=== PATIENT | female | born 2000 | race Hispanic/Latino ===

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

== ENCOUNTER → 2021-08-17 17:33 | Outpatient (CLI) | payer OTHER, MEDICAID, SELFPAY ==
[2021-08-17 18:22] LABS: COVID19 -Nasal RAPID Negative (Negative)
== END ==
PROVIDERS: Family Provider Family Medicine; PCP Family Medicine; Referring Provider Physician Assistant; Visit Provider Physician Assistant
DX: Z20.822 Contact with and (suspected) exposure to COVID-19 (principal)
CPT/HCPCS: 87635

== ENCOUNTER 2023-09-05 19:22 | Emergency (ER) | payer OTHER, MEDICAID, SELFPAY ==
[2023-09-05 19:30] VITALS: BP 143/78; PULSE 107; RESP 20; TEMP 36.6; O2SAT 100; BMI 24.5
--- NOTE | 2023-09-05 19:38 | ED.SKABFB ---
HPI - Skin/Abscess/Foreign Bdy General Chief complaint: Skin/Abscess/Foreign Body Stated complaint: right side boil in armpit Time Seen by Provider: 09/05/23 19:28 Source: patient Mode of arrival: Ambulatory Limitations: no limitations History of Present Illness HPI narrative: 22-year-old female. Is otherwise healthy. Has had 2 days of redness and swelling and a ?boil? to her right armpit. She has never had an abscess in the past that has required drainage. She states that she cut the area open last night with a knife that she had at home. It did drain a small amount of purulent fluid. She denies any fevers. Related Data Home Medications Medication Instructions Recorded Confirmed aripiprazole 10 mg tablet (Abilify) 10 mg PO DAILY 08/17/21 11/14/21 propranolol 10 mg tablet 5 mg PO ONCE 08/17/21 11/14/21 Previous Rx's Medication Instructions Recorded rizatriptan 5 mg tablet See Rx Instructions PO .COMPLEX 08/28/21 #30 tabs verapamil 120 mg 24 hr 120 mg PO DAILY #60 caps 08/28/21 capsule,extended release doxycycline hyclate 100 mg tablet 100 mg PO BID 7 days #14 tabs 09/05/23 Allergies Allergy/AdvReac Type Severity Reaction Status Date / Time No Known Allergies Allergy Uncoded 11/14/21 11:57 Review of Systems Constitutional Constitutional: Reports system reviewed and no additional complaints, except as documented Integumentary/Breasts Skin/Breast: Reports system reviewed and no additional complaints, except as documented Neurologic Neurologic: Reports system reviewed and no additional complaints, except as documented Patient History Medical History Screening for HPV (human papillomavirus) Cervical cancer screening Impingement syndrome, shoulder, left Hepatitis C Anxiety Acute hepatitis C virus infection without hepatic coma (10/02/16) Vaginal delivery Social History Smoking Status: Current every day smoker Smoking Status: Current every day smoker tobacco type: cigarettes and vaping alcohol intake frequency: holidays/special occasions only Substance Use Type: marijuana Exam Initial Vital Signs Initial Vital Signs: Vital Signs Temperature 97.9 F 09/05/23 19:30 Pulse Rate 107 H 12/28/23 19:30 Respiratory Rate 20 09/05/23 19:30 Blood Pressure 143/78 H 09/05/23 19:30 Pulse Oximetry 100 09/05/23 19:30 Oxygen Delivery Method Room Air 09/05/23 19:30 Skin Other: 7 cm area of redness consistent with cellulitis on her armpit and right upper inner arm. There is a smaller area of induration located more in the armpit there is a 1 cm area consistent with where the patient cut the wound earlier today. There was no active drainage. Extrem Other: Swelling to the right upper arm around the area of the infection. Procedures Abscess I/D I&D #1: Site: upper extremity Side (if applicable): right Local Anesthetic: lidocaine 1% and with epi Amount of anesthesia used (mL): 4 Technique: incised with #11 blade Irrigation: No Packing used?: none Course Orders Ordered: Discontinued Medications Doxycycline Hyclate (Doxycycline Hyclate 100 Mg Tablet) 100 mg PO NOW ONE Stop: 09/05/23 19:39 Last Admin: 09/05/23 19:47 Dose: 100 mg Documented By: CASSANDRA Vital Signs Vital signs: Vital Signs - 8 hr 09/05/23 19:30 09/05/23 20:00 Temperature 97.9 F 98.5 F Pulse Rate 107 H 98 H Respiratory Rate 20 16 Blood Pressure 143/78 H 118/74 Pulse Oximetry 100 98 Oxygen Delivery Method Room Air Room Air MDM - Skin/Abscess/Foreign Bdy MDM Narrative Medical decision making narrative: Bedside ultrasound showed a small area of what appeared to be an abscess. I suspect that quite a bit of the abscess was drained when she cut the area open at home on her own. They recommended to the patient that we do an I and D here in the ER to make sure that we get the entire abscess that it will drain which is most likely going to be the best chance of this healing. Patient expressed understanding of this and an I&D was performed as described above. Because of the large area of cellulitis around the area will start her on antibiotics. First dose was given here in the ER and a prescription was sent to the pharmacy of her choice. She was given return precautions. She expressed understanding and agreement. Discharge Plan Departure Patient Disposition: Home Clinical Impression: Abscess, Cellulitis Instructions: DI for Cellulitis -- Adult, DI for Skin Abscess Activity Restrictions/Additional Instructions: I would expect some continued drainage from the area. You just need to change the bandage as needed. Do not shave your arm pit or use deodorant until the wound is healed. You can shower like normal. Return to the emergency department for new symptoms. Prescriptions: New doxycycline hyclate 100 mg tablet 100 mg PO BID 7 Days Qty: 14 0RF No Action aripiprazole [Abilify] 10 mg tablet 10 mg PO DAILY propranolol 10 mg tablet 5 mg PO ONCE rizatriptan 5 mg tablet See Rx Instructions PO .COMPLEX Qty: 30 0RF Rx Instructions: take 1 tablet at onset of headache; if no relief, may repeat 1 tablet after at least 2 hrs PO. Did not tolerate sumatriptan verapamil 120 mg capsule,ext rel. pellets 24 hr 120 mg PO DAILY Qty: 60 0RF Referrals: Yakov Garcia MD [Primary Care Provider] - Stand Alone Forms: Patient Portal/API
[2023-09-05] MEDS: DOXYCYCLINE HYCLATE 100 MG TABLET PO (19:47)
[2023-09-05 20:00] VITALS: BP 118/74; PULSE 98; RESP 16; TEMP 36.9; O2SAT 98
== END 2023-09-05 20:00 | disposition home or self-care (01) ==
PROVIDERS: Emergency Provider Emergency Medicine; Family Provider Family Medicine; PCP Family Medicine
DX: L02.411 Cutaneous abscess of right axilla (principal); L03.111 Cellulitis of right axilla
CPT/HCPCS: 10060; 99283

== ENCOUNTER 2023-10-19 06:43 | Emergency (ER) | payer OTHER, MEDICAID, SELFPAY ==
[2023-10-19 06:45] VITALS: BP 166/105; PULSE 133; RESP 26; TEMP 36.7; O2SAT 96; BMI 24.5
--- NOTE | 2023-10-19 07:15 | ED.AMS ---
HPI - Altered Mental Status General Chief Complaint: Altered Mental Status Stated Complaint: psych Time Seen by Provider: 10/19/23 06:55 Source: EMS Mode of arrival: EMS History of Present Illness HPI narrative: 23-year-old female presents by EMS from home for agitation and altered mental status. Patient found by family running around, making incomprehensible statements and unable to be calmed down. Medics apparently spent some time on scene trying to get to the patient. She was given 2 mg of Versed and 250 mg of ketamine EN route. Patient was incomprehensible on arrival and not following commands. She was placed in restraints on arrival due to agitation. Related Data Home Medications Medication Instructions Recorded Confirmed aripiprazole 10 mg tablet (Abilify) 10 mg PO DAILY 08/17/21 11/14/21 propranolol 10 mg tablet 5 mg PO ONCE 08/17/21 11/14/21 Previous Rx's Medication Instructions Recorded rizatriptan 5 mg tablet See Rx Instructions PO .COMPLEX 08/28/21 #30 tabs verapamil 120 mg 24 hr 120 mg PO DAILY #60 caps 08/28/21 capsule,extended release Allergies Allergy/AdvReac Type Severity Reaction Status Date / Time No Known Allergies Allergy Uncoded 11/14/21 11:57 Review of Systems Review of Systems Narrative: Unable to assess due to current mental status Patient History Medical History Screening for HPV (human papillomavirus) Cervical cancer screening Impingement syndrome, shoulder, left Hepatitis C Anxiety Acute hepatitis C virus infection without hepatic coma (10/02/16) Vaginal delivery Social History Smoking Status: Current every day smoker Smoking Status: Current every day smoker tobacco type: cigarettes and vaping alcohol intake frequency: holidays/special occasions only Substance Use Type: marijuana, amphetamines and methamphetamine Exam Initial Vital Signs Initial Vital Signs: Vital Signs Temperature 98.1 F 10/19/23 06:45 Pulse Rate 133 H 10/19/23 06:45 Respiratory Rate 26 H 10/19/23 06:45 Blood Pressure 166/105 H 10/19/23 06:45 Pulse Oximetry 96 10/19/23 06:45 Oxygen Delivery Method Room Air 10/19/23 06:45 Const: Awake, alert, agitated Eyes: PERRL, EOMI, conjunctiva normal Cardiac: tachycardia, regular rhythm RESP: unlabored, clear bilaterally, no wheezing GI: Atraumatic, soft, nontender MSK: Atraumatic, full range of motion, pulses equal Skin: Warm, Dry, intact, no rashes Neuro: AO x1, CN II-XII grossly intact, moves all extremities Course Orders Ordered: ED Orders 10/19/23 06:30 Acetaminophen Stat CBC Auto Diff [Complete Blood Count AUTO DIFF] Stat CMP [Comprehensive Metabolic Panel] Stat Ethanol (ETOH) Stat Salicylate Stat TSH [Thyroid Stimulating Hormone] Stat 10/19/23 07:08 EKG-12 Lead Stat 10/19/23 08:13 COVID19 -Nasal RAPID Stat Discontinued Medications Sodium Chloride (Normal Saline 0.9%) 1,000 mls @ 1,000 mls/hr IV BOLUS ONE Stop: 10/19/23 08:06 Last Infusion: 10/19/23 09:40 Dose: Infused Documented By: Admin: 10/19/23 07:20 Dose: 1,000 mls/hr Documented By: CASSANDRA Vital Signs Vital signs: Vital Signs - 8 hr 10/19/23 06:45 10/19/23 10:25 Temperature 98.1 F 97.7 F Pulse Rate 133 H 98 H Respiratory Rate 26 H 16 Blood Pressure 166/105 H 112/78 Pulse Oximetry 96 98 Oxygen Delivery Method Room Air Room Air MDM - Altered Mental Status Differential Diagnosis Differential diagnosis: Likely alcoholic intoxication, altered mental status and delirium Lab Data 10/19/23 06:30 10/19/23 06:30 Labs: Lab Results 10/19/23 10/19/23 Range/Units 06:30 08:13 WBC 21.3 H (4.5-11.0) X10^3/uL RBC 4.46 (4.0-5.2) X10^6/uL Hgb 11.7 L (12.0-16.0) g/dL Hct 36.1 (36-46) % MCV 80.9 (80-100) fL MCH 26.2 (26-34) PG MCHC 32.4 (30-36) % RDW 14.9 H (11.6-14.8) % Plt Count 423 H (150-400) X10^3/uL Neut % (Auto) 79.4 H (50-75) % Lymph % (Auto) 12.8 L (25-40) % Summers % (Auto) 6.7 (3-14) % Eos % (Auto) 0.8 L (2-4) % Baso % (Auto) 0.3 (0-2) % Neut # (Auto) 18628 H (8480-8131) /uL Lymph # (Auto) 2700 (0683-9010) /uL Summers # (Auto) 1400 H (0-900) /uL Eos # (Auto) 200 (0-450) /uL Baso # (Auto) 100 (0-100) /uL Sodium 141 (137-145) mmol/L Potassium 3.6 (3.4-5.1) mmol/L Chloride 103 (98-107) mmol/L Carbon Dioxide 25 (22-32) mmol/L BUN 14 (7-17) mg/dL Creatinine 1.14 H (0.52-1.04) mg/dL Estimated GFR > 60 (>60) mL/min BUN/Creatinine Ratio 12.3 (6-22) Glucose 87 (70-100) mg/dL Calcium 9.6 (8.4-10.2) mg/dL Total Bilirubin 0.6 (0.2-1.3) mg/dL AST 95 H (14-36) IU/L ALT 51 H (<35) IU/L Alkaline Phosphatase 88 (38-126) U/L Total Protein 8.6 H (6.3-8.2) g/dL Albumin 4.6 (3.5-5.0) g/dL Globulin 4.0 (1.7-4.1) g/dL Albumin/Globulin Ratio 1.2 (1.0-2.8) TSH 6.31 H (0.47-4.68) uIU/mL Salicylates < 1.0 (<20) mg/dL Acetaminophen < 10 (10-30) ug/mL Ethyl Alcohol < 10 ( - 10) mg/dL SARS-CoV-2 (PCR) Negative (Negative) ECG Data Interpretation: Sinus tachycardia, rate 113 beats per minute, no ST T wave changes, normal intervals, no STEMI MDM Narrative Medical decision making narrative: 23-year-old female with altered mental status and agitation. Briefly placed in 4 point restraints due to agitation and not following commands, however she shortly afterwards calm down and was able to be removed from the restraints. She did endorse to nursing staff that she did amphetamines. Patient monitored, remained calm and cooperative, mental status returned to normal. Patient was able to call her family members to pick her up to take her home. She was given resources for detox facilities in the area. Discharge Plan Departure Patient Disposition: Home Clinical Impression: Amphetamine use, Agitation Instructions: DI for Substance Use Disorder Activity Restrictions/Additional Instructions: [facility] [address] [place] [id number] Prescriptions: No Action aripiprazole [Abilify] 10 mg tablet 10 mg PO DAILY propranolol 10 mg tablet 5 mg PO ONCE rizatriptan 5 mg tablet See Rx Instructions PO .COMPLEX Qty: 30 0RF Rx Instructions: take 1 tablet at onset of headache; if no relief, may repeat 1 tablet after at least 2 hrs PO. Did not tolerate sumatriptan verapamil 120 mg capsule,ext rel. pellets 24 hr 120 mg PO DAILY Qty: 60 0RF Referrals: Yakov Garcia MD [Primary Care Provider] - Stand Alone Forms: Patient Portal/API
[2023-10-19] MEDS: SODIUM CHLORIDE 0.9% 1,000 ML 1000 ML IV (07:20)
[2023-10-19 07:23] LABS: Add Manual Diff / Slide Review NO; Basophils Absolute Auto 100 /uL (0-100); Basophils Percent Auto 0.3 % (0-2); Eosinophils Absolute Auto 200 /uL (0-450); Eosinophils Percent Auto 0.8 % (2-4); Hematocrit 36.1 % (36-46); Hemoglobin 11.7 g/dL (12.0-16.0); Lymphocytes Absolute Auto 2700 /uL (1100-4500); Lymphocytes Percent Auto 12.8 % (25-40); Mean Corpuscular HGB Conc 32.4 % (30-36); Mean Corpuscular Hemoglobin 26.2 PG (26-34); Mean Corpuscular Volume 80.9 fL (80-100); Monocytes Absolute Auto 1400 /uL (0-900); Monocytes Percent Auto 6.7 % (3-14); Neutrophils Absolute Auto 16900 /uL (1500-7000); Neutrophils Percent Auto 79.4 % (50-75); Platelet Count 423 X10^3/uL (150-400); Red Blood Cell Count 4.46 X10^6/uL (4.0-5.2); Red Cell Distribution Width 14.9 % (11.6-14.8); White Blood Cell Count 21.3 X10^3/uL (4.5-11.0)
[2023-10-19 07:46] LABS: Alanine Aminotransferase 51 IU/L (<35); Albumin 4.6 g/dL (3.5-5.0); Albumin Globulin Ratio 1.2 (1.0-2.8); Alkaline Phosphatase 88 U/L (38-126); Aspartate Aminotransferase 95 IU/L (14-36); BUN Creatinine Ratio 12.3 (6-22); Bilirubin Total 0.6 mg/dL (0.2-1.3); Blood Urea Nitrogen 14 mg/dL (7-17); Calcium 9.6 mg/dL (8.4-10.2); Carbon Dioxide 25 mmol/L (22-32); Chloride 103 mmol/L (98-107); Estimated Glomerular Filt Rate > 60 mL/min (>60); Ethanol (ETOH) < 10 mg/dL; Glucose 87 mg/dL (70-100); HEMOLYSIS 25 (0-50); Potassium 3.6 mmol/L (3.4-5.1); Sodium 141 mmol/L (137-145); Total Protein 8.6 g/dL (6.3-8.2)
[2023-10-19 07:47] LABS: Acetaminophen < 10 ug/mL (10-30); Salicylate < 1.0 mg/dL (<20)
--- NOTE | 2023-10-19 08:11 | PC.NURSE ---
pt's brother, Alexandre, called the ED to say he found burnt foil with a blue pill marked 30 in pt's bedroom at home. This [employer] passed this information along to Dr. Rosenberg.
[2023-10-19 08:17] LABS: Thyroid Stimulating Hormone 6.31 uIU/mL (0.47-4.68)
[2023-10-19 08:35] LABS: COVID19 -Nasal RAPID Negative (Negative)
--- NOTE | 2023-10-19 08:42 | PC.NURSE ---
Pt was found to be standing at bedside with monitors attached while stopping her IV. Pt states she was concerned it would put air into her. I updated pt on her status and assisted her back into bed. Pt agreeable and cooperative, states she would like to contact her parents. Call light in reach.
--- NOTE | 2023-10-19 08:53 | PC.NURSE ---
pt asked to call family. provided phone for pt to call brother.
[2023-10-19 10:25] VITALS: BP 112/78; PULSE 98; RESP 16; TEMP 36.5; O2SAT 98
== END 2023-10-19 10:28 | disposition home or self-care (01) ==
PROVIDERS: Emergency Provider Emergency Medicine; Family Provider Family Medicine; PCP Family Medicine
DX: R45.1 Restlessness and agitation (principal); F15.90 Other stimulant use, unspecified, uncomplicated; R07.9 Chest pain, unspecified; Z20.822 Contact with and (suspected) exposure to COVID-19
CPT/HCPCS: 36415; 80053; 80320; 80329; 84443; 85025; 87635; 93005; 93010; 96360; 96361; 99284; G0480

== ENCOUNTER 2023-12-12 21:18 | Emergency (ER) | payer OTHER, MEDICAID, SELFPAY ==
[2023-12-12 21:20] VITALS: BMI 24.5
--- NOTE | 2023-12-12 21:25 | ED_ITS ---
HPI - Psych <Erika Rosenberg MD - Last Filed: 12/14/23 00:21> General Chief Complaint: Psychiatric Symptoms Stated Complaint: Psych, agitated Time Seen by Provider: 12/12/23 21:22 History of Present Illness HPI Narrative: 23-year-old female with history of bipolar disorder, amphetamine abuse presents by EMS for psychiatric evaluation. Patient was found in an alley screaming and thrashing by police. Medics were called for evaluation. Patient reportedly lives in her car and has been off her medications for the last 2 days. Patient unable to provide history, she arrives thrashing, rolling around on the floor. Related Data Home Medications Medication Instructions Recorded Confirmed aripiprazole 10 mg tablet (Abilify) 10 mg PO DAILY 08/17/21 11/14/21 propranolol 10 mg tablet 5 mg PO ONCE 08/17/21 11/14/21 Previous Rx's Medication Instructions Recorded rizatriptan 5 mg tablet See Rx Instructions PO .COMPLEX 08/28/21 #30 tabs verapamil 120 mg 24 hr 120 mg PO DAILY #60 caps 08/28/21 capsule,extended release cephalexin 500 mg capsule 500 mg PO BID 3 days #6 caps 12/13/23 Allergies Allergy/AdvReac Type Severity Reaction Status Date / Time No Known Drug Allergies Allergy Verified 12/13/23 09:57 Review of Systems <Erika Rosenberg MD - Last Filed: 12/14/23 00:21> Review of Systems Narrative: Unable to obtain Patient History <Erika Rosenberg MD - Last Filed: 12/14/23 00:21> Medical History Screening for HPV (human papillomavirus) Cervical cancer screening Impingement syndrome, shoulder, left Hepatitis C Anxiety Acute hepatitis C virus infection without hepatic coma (10/02/16) Vaginal delivery Social History Smoking Status: Current every day smoker Smoking Status: Current every day smoker tobacco type: cigarettes and vaping alcohol intake frequency: holidays/special occasions only Substance Use Type: marijuana, amphetamines and methamphetamine Exam <Erika Rosenberg MD - Last Filed: 12/14/23 00:21> Initial Vital Signs Initial Vital Signs: Vital Signs Temperature 98.2 F 12/12/23 22:18 Pulse Rate 126 H 12/12/23 22:18 Respiratory Rate 18 12/12/23 22:18 Blood Pressure 104/54 L 12/12/23 22:18 Oxygen Delivery Method Room Air 12/12/23 22:18 Const: Awake, alert, appears older than stated age, intoxicated Cardiac: Tachycardia, regular rhythm RESP: unlabored, clear bilaterally Skin: Warm, Dry, superficial abrasions over arms and feet Neuro: Moves all extremities, no focal deficit Psych: Extremely agitated, altered, appears under the influence <Isaura Lim DO - Last Filed: 12/13/23 17:55> Initial Vital Signs Initial Vital Signs: Vital Signs Temperature 98.2 F 12/12/23 22:18 Pulse Rate 126 H 12/12/23 22:18 Respiratory Rate 18 12/12/23 22:18 Blood Pressure 104/54 L 12/12/23 22:18 Oxygen Delivery Method Room Air 12/12/23 22:18 Course <Erika Rosenberg MD - Last Filed: 12/14/23 00:21> Orders Ordered: Discontinued Medications Haloperidol (Haloperidol 5 Mg/Ml Vial) 10 mg IM NOW ONE Stop: 12/12/23 21:26 Last Admin: 12/12/23 21:37 Dose: 10 mg Documented By: SARTAH Sodium Chloride (Normal Saline 0.9%) 1,000 mls @ 1,000 mls/hr IV BOLUS ONE Stop: 12/13/23 10:02 Last Infusion: 12/13/23 10:35 Dose: 0 mls/hr Documented By: Admin: 12/13/23 09:39 Dose: 1,000 mls/hr Documented By: LITZY Ceftriaxone Sodium 1,000 mg/ (Sodium Chloride) 100 mls @ 200 mls/hr IV NOW ONE Stop: 12/13/23 09:23 Last Infusion: 12/13/23 10:14 Dose: Infused Documented By: Admin: 12/13/23 09:37 Dose: 200 mls/hr Documented By: LITZY Lorazepam (Lorazepam 2 Mg/Ml Inj) 2 mg IM NOW ONE Stop: 12/12/23 21:26 Last Admin: 12/12/23 21:37 Dose: 2 mg Documented By: SARATH Vital Signs Vital signs: Vital Signs - 8 hr 12/13/23 04:36 12/13/23 07:01 Temperature 97.8 F Pulse Rate 89 85 Respiratory Rate 14 14 Blood Pressure 87/49 L 102/55 L Pulse Oximetry 98 100 Oxygen Delivery Method Room Air Room Air <Isaura Lim DO - Last Filed: 12/13/23 17:55> Orders Ordered: Discontinued Medications Haloperidol (Haloperidol 5 Mg/Ml Vial) 10 mg IM NOW ONE Stop: 12/12/23 21:26 Last Admin: 12/12/23 21:37 Dose: 10 mg Documented By: SARATH Sodium Chloride (Normal Saline 0.9%) 1,000 mls @ 1,000 mls/hr IV BOLUS ONE Stop: 12/13/23 10:02 Last Infusion: 12/13/23 10:35 Dose: 0 mls/hr Documented By: Admin: 12/13/23 09:39 Dose: 1,000 mls/hr Documented By: LITZY Ceftriaxone Sodium 1,000 mg/ (Sodium Chloride) 100 mls @ 200 mls/hr IV NOW ONE Stop: 12/13/23 09:23 Last Infusion: 12/13/23 10:14 Dose: Infused Documented By: Admin: 12/13/23 09:37 Dose: 200 mls/hr Documented By: LITZY Lorazepam (Lorazepam 2 Mg/Ml Inj) 2 mg IM NOW ONE Stop: 12/12/23 21:26 Last Admin: 12/12/23 21:37 Dose: 2 mg Documented By: SARATH Vital Signs Vital signs: Vital Signs - 8 hr 12/13/23 04:36 12/13/23 07:01 Temperature 97.8 F Pulse Rate 89 85 Respiratory Rate 14 14 Blood Pressure 87/49 L 102/55 L Pulse Oximetry 98 100 Oxygen Delivery Method Room Air Room Air MDM - Psych <Erika Rosenberg MD - Last Filed: 12/14/23 00:21> Lab Data 12/13/23 08:10 12/13/23 08:10 Labs: Lab Results 12/12/23 12/12/23 12/13/23 Range/Units 22:30 22:35 08:10 WBC 25.9 H 10.8 D (4.5-11.0) X10^3/uL RBC 4.19 4.17 (4.0-5.2) X10^6/uL Hgb 11.0 L 11.1 L (12.0-16.0) g/dL Hct 33.7 L 33.9 L (36-46) % MCV 80.5 81.3 (80-100) fL MCH 26.2 26.7 (26-34) PG MCHC 32.6 32.9 (30-36) % RDW 15.0 H 15.3 H (11.6-14.8) % Plt Count 290 288 (150-400) X10^3/uL Neut % (Auto) Not Reportable 64.2 Lymph % (Auto) Not Reportable 25.9 [place] % (Auto) Not Reportable 8.7 Eos % (Auto) Not Reportable 0.7 L Baso % (Auto) Not Reportable 0.5 Neut # (Auto) 6900 (4691-1955) /uL Lymph # (Auto) Not Reportable 2800 [place] # (Auto) Not Reportable 900 Eos # (Auto) 100 (0-450) /uL Baso # (Auto) Not Reportable 100 Total Counted 100 Seg Neutrophils % 74.0 H (38-70) % Band Neutrophils % 16.0 H (3-7) % Lymphocytes % (Manual) 3.0 L (25-45) % Monocytes % (Manual) 7.0 (2-11) % Neutrophils # (Manual) 66733 H (8214-5427) /uL Platelet Estimate Adequate on smear RBC Morphology Normal morphology Sodium 136 L 135 L (137-145) mmol/L Potassium 3.9 3.6 (3.4-5.1) mmol/L Chloride 105 103 (98-107) mmol/L Carbon Dioxide 23 22 (22-32) mmol/L BUN 21 H 20 H (7-17) mg/dL Creatinine 1.10 H 0.85 (0.52-1.04) mg/dL Estimated GFR > 60 > 60 (>60) mL/min BUN/Creatinine Ratio 19.1 23.5 H (6-22) Glucose 65 L 59 L (70-100) mg/dL Lactate 0.5 L (0.7-2.1) mmol/L Calcium 9.5 9.1 (8.4-10.2) mg/dL Total Bilirubin 0.8 1.4 H (0.2-1.3) mg/dL AST 96 H 90 H (14-36) IU/L ALT 35 H 35 H (<35) IU/L Alkaline Phosphatase 65 56 (38-126) U/L Total Protein 7.5 7.3 (6.3-8.2) g/dL Albumin 4.3 4.1 (3.5-5.0) g/dL Globulin 3.2 3.2 (1.7-4.1) g/dL Albumin/Globulin Ratio 1.3 1.3 (1.0-2.8) Procalcitonin 2.36 H (<0.5) ng/mL TSH 2.19 (0.47-4.68) uIU/mL Serum , Qual Negative (Negative) Urine Color Urine Appearance Urine pH (4.5-8.0) Ur Specific [place] (1.000-1.035) Urine Protein (Negative) Urine Glucose (UA) (Negative) g/dL Urine Ketones (NEGATIVE) Urine Occult Blood (Negative) Urine Nitrate (Negative) Urine Bilirubin (NEGATIVE) Urine Urobilinogen (0.2) E.U./dL Ur Leukocyte Esterase (NEGATIVE) Urine RBC (0-5/HPF) Urine WBC (0-5/HPF) Ur Squamous Epith Cells (0-5/HPF) Urine Bacteria (None) Vol Urine Centrifuged Salicylates < 1.0 (<20) mg/dL U Opiates 300ng/mL cut (Negative) Ur Oxycodone Screen (Negative) Urine Methadone Screen (Negative) Acetaminophen < 10 (10-30) ug/mL Ur Barbiturates Screen (Negative) U Tricyclic Antidepress (Negative) Ur Phencyclidine Scrn (Negative) Ur Amphetamines Screen (Negative) U Methamphetamines Scrn (Negative) Ur MDMA Scrn (Ecstasy) (Negative) U Benzodiazepines Scrn (Negative) Urine Cocaine Screen (Negative) U Marijuana (THC) Screen (Negative) Urine Specific [place] (Normal) Ethyl Alcohol < 10 ( - 10) mg/dL Ur Creatinine (Normal) SARS-CoV-2 (PCR) Negative (Negative) 12/13/23 12/13/23 Range/Units 10:20 10:20 WBC (4.5-11.0) X10^3/uL RBC (4.0-5.2) X10^6/uL Hgb (12.0-16.0) g/dL Hct (36-46) % MCV (80-100) fL MCH (26-34) PG MCHC (30-36) % RDW (11.6-14.8) % Plt Count (150-400) X10^3/uL Neut % (Auto) Lymph % (Auto) [place] % (Auto) Eos % (Auto) Baso % (Auto) Neut # (Auto) (4729-2793) /uL Lymph # (Auto) [place] # (Auto) Eos # (Auto) (0-450) /uL Baso # (Auto) Total Counted Seg Neutrophils % (38-70) % Band Neutrophils % (3-7) % Lymphocytes % (Manual) (25-45) % Monocytes % (Manual) (2-11) % Neutrophils # (Manual) (6319-8218) /uL Platelet Estimate RBC Morphology Sodium (137-145) mmol/L Potassium (3.4-5.1) mmol/L Chloride (98-107) mmol/L Carbon Dioxide (22-32) mmol/L BUN (7-17) mg/dL Creatinine (0.52-1.04) mg/dL Estimated GFR (>60) mL/min BUN/Creatinine Ratio (6-22) Glucose (70-100) mg/dL Lactate (0.7-2.1) mmol/L Calcium (8.4-10.2) mg/dL Total Bilirubin (0.2-1.3) mg/dL AST (14-36) IU/L ALT (<35) IU/L Alkaline Phosphatase (38-126) U/L Total Protein (6.3-8.2) g/dL Albumin (3.5-5.0) g/dL Globulin (1.7-4.1) g/dL Albumin/Globulin Ratio (1.0-2.8) Procalcitonin (<0.5) ng/mL TSH (0.47-4.68) uIU/mL Serum , Qual (Negative) Urine Color Yellow Urine Appearance Clear Urine pH 5.0 Normal (4.5-8.0) Ur Specific [place] >=1.030 H (1.000-1.035) Urine Protein Trace H (Negative) Urine Glucose (UA) Negative (Negative) g/dL Urine Ketones 3+ H (NEGATIVE) Urine Occult Blood Negative (Negative) Urine Nitrate Negative (Negative) Urine Bilirubin Negative (NEGATIVE) Urine Urobilinogen 0.2 (0.2) E.U./dL Ur Leukocyte Esterase Negative (NEGATIVE) Urine RBC None seen (0-5/HPF) Urine WBC None seen (0-5/HPF) Ur Squamous Epith Cells 5-10 /hpf H (0-5/HPF) Urine Bacteria None seen (None) Vol Urine Centrifuged 10ml (spun) Salicylates (<20) mg/dL U Opiates 300ng/mL cut Negative (Negative) Ur Oxycodone Screen Negative (Negative) Urine Methadone Screen Negative (Negative) Acetaminophen (10-30) ug/mL Ur Barbiturates Screen Negative (Negative) U Tricyclic Antidepress Negative (Negative) Ur Phencyclidine Scrn Negative (Negative) Ur Amphetamines Screen Positive H (Negative) U Methamphetamines Scrn Positive H (Negative) Ur MDMA Scrn (Ecstasy) Negative (Negative) U Benzodiazepines Scrn Positive H (Negative) Urine Cocaine Screen Negative (Negative) U Marijuana (THC) Screen Negative (Negative) Urine Specific [place] Normal (Normal) Ethyl Alcohol ( - 10) mg/dL Ur Creatinine Normal (Normal) SARS-CoV-2 (PCR) (Negative) MDM Narrative Medical decision making narrative: Patient arriving for psychiatric evaluation. Patient does have a history of amphetamine use and does appear to be under the influence of stimulants. Patient did endorse stressors in her life to nursing staff. Currently denying wanting to harm herself. History otherwise limited at this time due to patient's extreme agitation and erratic movements. Haldol and Ativan ordered. Based on patient's previous visit review low suspicion for actual psychiatric process at this time, likely more secondary to illicit substance use. Laboratory work is reviewed, there was leukocytosis present, which would be consistent with patient's previous extreme agitation. After receiving Haldol and Ativan patient's agitation resolved and she slept comfortably throughout the night. Care of patient signed to Dr. Lim at 0700 Dr. Lim-patient signed out to me by Dr. Rosenberg. I have seen evaluated patient myself. She remained sleepy but arousable. Pressure was slightly low but really taken she is blood pressure 104/55, she is noted to have significant leukocytosis of 25 it previously was 21. However patient reports that she was diagnosed with a UTI never took her antibiotics. Still waiting for urine Repeat blood work in the morning shows WBC count of 10.8, hemoglobin 11.1 hematocrit 33.9, platelets 288, sodium 135, potassium 3.6, chloride 103, carbon dioxide 22, BUN 20, creatinine 0.85, glucose 59, lactate 0.5, procalcitonin 2.36, bilirubin 1.4, AST 19, ALT 35 Patient remains sleepy but arousable blood pressure mildly improving. She is given IV fluids she is drinking p.o. fluids. Procalcitonin history of recent UTI she has given a dose of Rocephin. You think significantly elevated leukocytosis was due to severe agitation. Urinalysis actually unremarkable also put her on some antibiotics with an elevated procalcitonin. Blood cultures pending. Patient awake alert appropriate steady gait time going to go home. <Isaura Lim, DO - Last Filed: 12/13/23 17:55> Lab Data Labs: Lab Results 12/12/23 12/12/23 12/13/23 Range/Units 22:30 22:35 08:10 WBC 25.9 H 10.8 D (4.5-11.0) X10^3/uL RBC 4.19 4.17 (4.0-5.2) X10^6/uL Hgb 11.0 L 11.1 L (12.0-16.0) g/dL Hct 33.7 L 33.9 L (36-46) % MCV 80.5 81.3 (80-100) fL MCH 26.2 26.7 (26-34) PG MCHC 32.6 32.9 (30-36) % RDW 15.0 H 15.3 H (11.6-14.8) % Plt Count 290 288 (150-400) X10^3/uL Neut % (Auto) Not Reportable 64.2 Lymph % (Auto) Not Reportable 25.9 [place] % (Auto) Not Reportable 8.7 Eos % (Auto) Not Reportable 0.7 L Baso % (Auto) Not Reportable 0.5 Neut # (Auto) 6900 (7712-0602) /uL Lymph # (Auto) Not Reportable 2800 [place] # (Auto) Not Reportable 900 Eos # (Auto) 100 (0-450) /uL Baso # (Auto) Not Reportable 100 Total Counted 100 Seg Neutrophils % 74.0 H (38-70) % Band Neutrophils % 16.0 H (3-7) % Lymphocytes % (Manual) 3.0 L (25-45) % Monocytes % (Manual) 7.0 (2-11) % Neutrophils # (Manual) 53186 H (0442-2672) /uL Platelet Estimate Adequate on smear RBC Morphology Normal morphology Sodium 136 L 135 L (137-145) mmol/L Potassium 3.9 3.6 (3.4-5.1) mmol/L Chloride 105 103 (98-107) mmol/L Carbon Dioxide 23 22 (22-32) mmol/L BUN 21 H 20 H (7-17) mg/dL Creatinine 1.10 H 0.85 (0.52-1.04) mg/dL Estimated GFR > 60 > 60 (>60) mL/min BUN/Creatinine Ratio 19.1 23.5 H (6-22) Glucose 65 L 59 L (70-100) mg/dL Lactate 0.5 L (0.7-2.1) mmol/L Calcium 9.5 9.1 (8.4-10.2) mg/dL Total Bilirubin 0.8 1.4 H (0.2-1.3) mg/dL AST 96 H 90 H (14-36) IU/L ALT 35 H 35 H (<35) IU/L Alkaline Phosphatase 65 56 (38-126) U/L Total Protein 7.5 7.3 (6.3-8.2) g/dL Albumin 4.3 4.1 (3.5-5.0) g/dL Globulin 3.2 3.2 (1.7-4.1) g/dL Albumin/Globulin Ratio 1.3 1.3 (1.0-2.8) Procalcitonin 2.36 H (<0.5) ng/mL TSH 2.19 (0.47-4.68) uIU/mL Serum , Qual Negative (Negative) Urine Color Urine Appearance Urine pH (4.5-8.0) Ur Specific [place] (1.000-1.035) Urine Protein (Negative) Urine Glucose (UA) (Negative) g/dL Urine Ketones (NEGATIVE) Urine Occult Blood (Negative) Urine Nitrate (Negative) Urine Bilirubin (NEGATIVE) Urine Urobilinogen (0.2) E.U./dL Ur Leukocyte Esterase (NEGATIVE) Urine RBC (0-5/HPF) Urine WBC (0-5/HPF) Ur Squamous Epith Cells (0-5/HPF) Urine Bacteria (None) Vol Urine Centrifuged Salicylates < 1.0 (<20) mg/dL U Opiates 300ng/mL cut (Negative) Ur Oxycodone Screen (Negative) Urine Methadone Screen (Negative) Acetaminophen < 10 (10-30) ug/mL Ur Barbiturates Screen (Negative) U Tricyclic Antidepress (Negative) Ur Phencyclidine Scrn (Negative) Ur Amphetamines Screen (Negative) U Methamphetamines Scrn (Negative) Ur MDMA Scrn (Ecstasy) (Negative) U Benzodiazepines Scrn (Negative) Urine Cocaine Screen (Negative) U Marijuana (THC) Screen (Negative) Urine Specific [place] (Normal) Ethyl Alcohol < 10 ( - 10) mg/dL Ur Creatinine (Normal) SARS-CoV-2 (PCR) Negative (Negative) 12/13/23 12/13/23 Range/Units 10:20 10:20 WBC (4.5-11.0) X10^3/uL RBC (4.0-5.2) X10^6/uL Hgb (12.0-16.0) g/dL Hct (36-46) % MCV (80-100) fL MCH (26-34) PG MCHC (30-36) % RDW (11.6-14.8) % Plt Count (150-400) X10^3/uL Neut % (Auto) Lymph % (Auto) [place] % (Auto) Eos % (Auto) Baso % (Auto) Neut # (Auto) (9826-3796) /uL Lymph # (Auto) [place] # (Auto) Eos # (Auto) (0-450) /uL Baso # (Auto) Total Counted Seg Neutrophils % (38-70) % Band Neutrophils % (3-7) % Lymphocytes % (Manual) (25-45) % Monocytes % (Manual) (2-11) % Neutrophils # (Manual) (1206-1820) /uL Platelet Estimate RBC Morphology Sodium (137-145) mmol/L Potassium (3.4-5.1) mmol/L Chloride (98-107) mmol/L Carbon Dioxide (22-32) mmol/L BUN (7-17) mg/dL Creatinine (0.52-1.04) mg/dL Estimated GFR (>60) mL/min BUN/Creatinine Ratio (6-22) Glucose (70-100) mg/dL Lactate (0.7-2.1) mmol/L Calcium (8.4-10.2) mg/dL Total Bilirubin (0.2-1.3) mg/dL AST (14-36) IU/L ALT (<35) IU/L Alkaline Phosphatase (38-126) U/L Total Protein (6.3-8.2) g/dL Albumin (3.5-5.0) g/dL Globulin (1.7-4.1) g/dL Albumin/Globulin Ratio (1.0-2.8) Procalcitonin (<0.5) ng/mL TSH (0.47-4.68) uIU/mL Serum , Qual (Negative) Urine Color Yellow Urine Appearance Clear Urine pH 5.0 Normal (4.5-8.0) Ur Specific [place] >=1.030 H (1.000-1.035) Urine Protein Trace H (Negative) Urine Glucose (UA) Negative (Negative) g/dL Urine Ketones 3+ H (NEGATIVE) Urine Occult Blood Negative (Negative) Urine Nitrate Negative (Negative) Urine Bilirubin Negative (NEGATIVE) Urine Urobilinogen 0.2 (0.2) E.U./dL Ur Leukocyte Esterase Negative (NEGATIVE) Urine RBC None seen (0-5/HPF) Urine WBC None seen (0-5/HPF) Ur Squamous Epith Cells 5-10 /hpf H (0-5/HPF) Urine Bacteria None seen (None) Vol Urine Centrifuged 10ml (spun) Salicylates (<20) mg/dL U Opiates 300ng/mL cut Negative (Negative) Ur Oxycodone Screen Negative (Negative) Urine Methadone Screen Negative (Negative) Acetaminophen (10-30) ug/mL Ur Barbiturates Screen Negative (Negative) U Tricyclic Antidepress Negative (Negative) Ur Phencyclidine Scrn Negative (Negative) Ur Amphetamines Screen Positive H (Negative) U Methamphetamines Scrn Positive H (Negative) Ur MDMA Scrn (Ecstasy) Negative (Negative) U Benzodiazepines Scrn Positive H (Negative) Urine Cocaine Screen Negative (Negative) U Marijuana (THC) Screen Negative (Negative) Urine Specific [place] Normal (Normal) Ethyl Alcohol ( - 10) mg/dL Ur Creatinine Normal (Normal) SARS-CoV-2 (PCR) (Negative) MDM Narrative Medical decision making narrative: Patient arriving for psychiatric evaluation. Patient does have a history of amphetamine use and does appear to be under the influence of stimulants. Patient did endorse stressors in her life to nursing staff. Currently denying wanting to harm herself. History otherwise limited at this time due to patient's extreme agitation and erratic movements. Haldol and Ativan ordered. Based on patient's previous visit review low suspicion for actual psychiatric process at this time, likely more secondary to illicit substance use. Laboratory work is reviewed, there was leukocytosis present, which would be consistent with patient's previous extreme agitation. After receiving Haldol and Ativan patient's agitation resolved and she slept comfortably throughout the night. Dr. Lim-patient signed out to me by Dr. Rosenberg. I have seen evaluated patient myself. She remained sleepy but arousable. Pressure was slightly low but really taken she is blood pressure 104/55, she is noted to have significant leukocytosis of 25 it previously was 21. However patient reports that she was diagnosed with a UTI never took her antibiotics. Still waiting for urine Repeat blood work in the morning shows WBC count of 10.8, hemoglobin 11.1 hematocrit 33.9, platelets 288, sodium 135, potassium 3.6, chloride 103, carbon dioxide 22, BUN 20, creatinine 0.85, glucose 59, lactate 0.5, procalcitonin 2.36, bilirubin 1.4, AST 19, ALT 35 Patient remains sleepy but arousable blood pressure mildly improving. She is given IV fluids she is drinking p.o. fluids. Procalcitonin history of recent UTI she has given a dose of Rocephin. You think significantly elevated leukocytosis was due to severe agitation. Urinalysis actually unremarkable also put her on some antibiotics with an elevated procalcitonin. Blood cultures pending. Patient awake alert appropriate steady gait time going to go home. Discharge Plan Departure Patient Disposition: Home Clinical Impression: UTI (urinary tract infection), Methamphetamine abuse Instructions: DI for Urinary Tract Infection (UTI), Methamphetamine Activity Restrictions/Additional Instructions: *You have been diagnosed with UTI methamphetamine abuse *What to do: Stop using methamphetamine. *Continue to take medications as directed Keflex 500 mg twice a day for 3 days *Follow up with your primary care provider in 2-3 days or call [phone] *Return to ER if you should have any new, worsening or concerning symptoms Prescriptions: New cephalexin 500 mg capsule 500 mg PO BID 3 Days Qty: 6 0RF No Action aripiprazole [Abilify] 10 mg tablet 10 mg PO DAILY propranolol 10 mg tablet 5 mg PO ONCE rizatriptan 5 mg tablet See Rx Instructions PO .COMPLEX Qty: 30 0RF Rx Instructions: take 1 tablet at onset of headache; if no relief, may repeat 1 tablet after at least 2 hrs PO. Did not tolerate sumatriptan verapamil 120 mg capsule,ext rel. pellets 24 hr 120 mg PO DAILY Qty: 60 0RF Referrals: Yakov Garcia MD [Primary Care Provider] - Stand Alone Forms: Patient Portal/API
[2023-12-12] MEDS: HALOPERIDOL 5 MG/ML VIAL 10 MG IM (21:37)
[2023-12-12] MEDS: LORazepam 2 MG/ML INJ IM (21:37)
[2023-12-12 22:18] VITALS: BP 104/54; PULSE 126; RESP 18; TEMP 36.8
[2023-12-12 22:47] LABS: Hematocrit 33.7 % (36-46); Mean Corpuscular HGB Conc 32.6 % (30-36); Mean Corpuscular Hemoglobin 26.2 PG (26-34); Mean Corpuscular Volume 80.5 fL (80-100); Platelet Count 290 X10^3/uL (150-400); Red Blood Cell Count 4.19 X10^6/uL (4.0-5.2); White Blood Cell Count 25.9 X10^3/uL (4.5-11.0)
[2023-12-12 22:50] LABS: Add Manual Diff / Slide Review YES
[2023-12-12 23:02] LABS: COVID19 -Nasal RAPID Negative (Negative)
[2023-12-12 23:04] LABS: Pregnancy Test Serum,Qual Negative (Negative)
[2023-12-12 23:05] LABS: Acetaminophen < 10 ug/mL (10-30); Alanine Aminotransferase 35 IU/L (<35); Albumin 4.3 g/dL (3.5-5.0); Albumin Globulin Ratio 1.3 (1.0-2.8); Alkaline Phosphatase 65 U/L (38-126); Aspartate Aminotransferase 96 IU/L (14-36); BUN Creatinine Ratio 19.1 (6-22); Bilirubin Total 0.8 mg/dL (0.2-1.3); Blood Urea Nitrogen 21 mg/dL (7-17); Calcium 9.5 mg/dL (8.4-10.2); Carbon Dioxide 23 mmol/L (22-32); Chloride 105 mmol/L (98-107); Estimated Glomerular Filt Rate > 60 mL/min (>60); Ethanol (ETOH) < 10 mg/dL; Globulin 3.2 g/dL (1.7-4.1); Glucose 65 mg/dL (70-100); HEMOLYSIS < 15 (0-50); Potassium 3.9 mmol/L (3.4-5.1); Salicylate < 1.0 mg/dL (<20); Sodium 136 mmol/L (137-145); Total Protein 7.5 g/dL (6.3-8.2)
[2023-12-12 23:12] LABS: Neutrophils Absolute Manual 23310 /uL (3000-5900); Platelet Estimate Adequate on smear; RBC Morphology Normal Morphology; Total Cells Counted 100
[2023-12-12 23:34] LABS: Thyroid Stimulating Hormone 2.19 uIU/mL (0.47-4.68)
--- NOTE | 2023-12-13 00:12 | PC.NURSE ---
Pt has been given water and assist to the BR to give a sample for the lab, she was unable to void at this time.
--- NOTE | 2023-12-13 01:15 | PC.NURSE ---
Spoke with Provider, pt sleeping soundly, has been cooperative when awake, will continue with Q15m checks, no long on 1:1 observation. Mattress remains on floor for safety.
--- NOTE | 2023-12-13 03:16 | PC.NURSE ---
Pt is asleep, equal rise and fall of chest, no respiratory distress noted at this time.
--- NOTE | 2023-12-13 03:30 | PC.NURSE ---
Pt asleep, equal rise and fall of chest, no respiratory distress noted at this time.
[2023-12-13 04:36] VITALS: BP 87/49; PULSE 89; RESP 14; TEMP 36.6; O2SAT 98
[2023-12-13 07:01] VITALS: BP 102/55; PULSE 85; RESP 14; O2SAT 100
--- NOTE | 2023-12-13 08:16 | PC.NURSE ---
IV placed and blood sent to lab. Pt tolerated IV placement well. Pt states that she is very sleepy. Pt arousable to sound & touch. Answers all questions appropriately. A&Ox4.
[2023-12-13 08:24] LABS: Add Manual Diff / Slide Review NO; Basophils Absolute Auto 100 /uL (0-100); Basophils Percent Auto 0.5 % (0-2); Eosinophils Absolute Auto 100 /uL (0-450); Eosinophils Percent Auto 0.7 % (2-4); Hematocrit 33.9 % (36-46); Hemoglobin 11.1 g/dL (12.0-16.0); Lymphocytes Absolute Auto 2800 /uL (1100-4500); Lymphocytes Percent Auto 25.9 % (25-40); Mean Corpuscular HGB Conc 32.9 % (30-36); Mean Corpuscular Hemoglobin 26.7 PG (26-34); Mean Corpuscular Volume 81.3 fL (80-100); Monocytes Absolute Auto 900 /uL (0-900); Monocytes Percent Auto 8.7 % (3-14); Neutrophils Absolute Auto 6900 /uL (1500-7000); Neutrophils Percent Auto 64.2 % (50-75); Platelet Count 288 X10^3/uL (150-400); Red Blood Cell Count 4.17 X10^6/uL (4.0-5.2); Red Cell Distribution Width 15.3 % (11.6-14.8); White Blood Cell Count 10.8 X10^3/uL (4.5-11.0)
[2023-12-13 08:37] LABS: Lactate (Lactic Acid) 0.5 mmol/L (0.7-2.1)
[2023-12-13 08:38] LABS: Alanine Aminotransferase 35 IU/L (<35); Albumin 4.1 g/dL (3.5-5.0); Albumin Globulin Ratio 1.3 (1.0-2.8); Alkaline Phosphatase 56 U/L (38-126); Aspartate Aminotransferase 90 IU/L (14-36); BUN Creatinine Ratio 23.5 (6-22); Bilirubin Total 1.4 mg/dL (0.2-1.3); Blood Urea Nitrogen 20 mg/dL (7-17); Calcium 9.1 mg/dL (8.4-10.2); Carbon Dioxide 22 mmol/L (22-32); Chloride 103 mmol/L (98-107); Estimated Glomerular Filt Rate > 60 mL/min (>60); Globulin 3.2 g/dL (1.7-4.1); Glucose 59 mg/dL (70-100); HEMOLYSIS < 15 (0-50); Potassium 3.6 mmol/L (3.4-5.1); Sodium 135 mmol/L (137-145); Total Protein 7.3 g/dL (6.3-8.2)
[2023-12-13 08:54] LABS: Procalcitonin 2.36 ng/mL (<0.5)
[2023-12-13] MEDS: cefTRIAXone 1,000 MG in SODIUM CHLORIDE 0.9% 100 ML 200 MG IV (09:37)
[2023-12-13] MEDS: SODIUM CHLORIDE 0.9% 1,000 ML 1000 ML IV (09:39)
--- NOTE | 2023-12-13 10:18 | PC.NURSE ---
Pt answers arousable to sound and touch. Answers all questions appropriately. A&Ox34. Pt states that she is very tired and would like to sleep more. Pt has water and snacks and warm blankets.
[2023-12-13 10:27] LABS: Appearance Urine UA CLEAR; Bilirubin Urine UA NEGATIVE (NEGATIVE); Color Urine UA YELLOW; Glucose Urine UA NEGATIVE (Negative); Ketones Urine UA 3+ (NEGATIVE); Leukocyte Esterase Urine UA NEGATIVE (NEGATIVE); Nitrite Urine UA NEGATIVE (Negative); Occult Blood Urine UA NEGATIVE (Negative); Protein Urine UA TRACE (Negative); Specific Gravity Urine UA >=1.030 (1.000-1.035); Urobilinogen Urine UA 0.2 E.U./dL (0.2)
[2023-12-13 10:30] LABS: UR Morphine/Opiate cutoff 300 Negative (Negative); Ur Creatinine Normal (Normal); Ur Specific Gravity Normal (Normal); Urine Amphetamines Positive (Negative); Urine Barbiturates Negative (Negative); Urine Cocaine Negative (Negative); Urine MDMA Negative (Negative); Urine Methamphetamines Positive (Negative); Urine Phencyclidine Negative (Negative); Urine Tetrahydrocannabinol Negative (Negative); Urine pH Normal (Normal)
[2023-12-13 10:31] LABS: Urine Benzodiazepines Positive (Negative); Urine Methadone Negative (Negative); Urine Oxycodone Negative (Negative); Urine Tricyclic Antidepressant Negative (Negative)
[2023-12-13 10:32] LABS: Bacteria Urine None Seen; RBC Urine None Seen (0-5/HPF); Squamous Epithelial Cell Urine 5-10 /HPF (0-5/HPF); Urine Volume 10mL (spun); WBC Urine None Seen (0-5/HPF)
== END 2023-12-13 11:33 | disposition home or self-care (01) ==
PROVIDERS: Emergency Medicine; Emergency Provider Emergency Medicine; Family Provider Family Medicine; PCP Family Medicine
DX: N39.0 Urinary tract infection, site not specified (principal); F15.10 Other stimulant abuse, uncomplicated; Z20.822 Contact with and (suspected) exposure to COVID-19
CPT/HCPCS: 36415; 80053; 80305; 80320; 80329; 81001; 83605; 84145; 84443; 84703; 85007; 85025; 87040; 87635; 96365; 96372; 99284; G0480; J0696; J1630; J2060

== ENCOUNTER 2024-01-23 19:27 | Emergency (ER) | payer OTHER, MEDICAID, SELFPAY ==
[2024-01-23 19:24] VITALS: BP 160/80; PULSE 132; RESP 17; TEMP 36.8; O2SAT 95; BMI 41.5
--- NOTE | 2024-01-23 19:51 | ED.GENADULT ---
HPI - General Adult General Chief complaint: Toxicology Problem Stated complaint: smoked powdered meth/fent Time Seen by Provider: 01/23/24 19:50 History of Present Illness HPI narrative: 23-year-old female reports using polysubstance drug prior to arrival, agitated, arrived by EMS who felt that she was thrashing about unable to care for herself. Patient denies thoughts of hurting herself hurting others. Patient would like to go home. She denies trouble breathing, weakness, injury, seziures, abdominal pain, leg pain, headache. SHe would like to go home with her borther, who she thinks might in the waiting, or coming to the hospital. Related Data Home Medications Medication Instructions Recorded Confirmed aripiprazole 10 mg tablet (Abilify) 10 mg PO DAILY 08/17/21 11/14/21 propranolol 10 mg tablet 5 mg PO ONCE 08/17/21 11/14/21 Previous Rx's Medication Instructions Recorded rizatriptan 5 mg tablet See Rx Instructions PO .COMPLEX 08/28/21 #30 tabs verapamil 120 mg 24 hr 120 mg PO DAILY #60 caps 08/28/21 capsule,extended release Allergies Allergy/AdvReac Type Severity Reaction Status Date / Time No Known Drug Allergies Allergy Verified 01/23/24 19:45 Patient History Medical History Screening for HPV (human papillomavirus) Cervical cancer screening Impingement syndrome, shoulder, left Hepatitis C Anxiety Acute hepatitis C virus infection without hepatic coma (10/02/16) Vaginal delivery Social History Smoking Status: Current every day smoker Smoking Status: Current every day smoker tobacco type: cigarettes and vaping alcohol intake frequency: holidays/special occasions only Substance Use Type: marijuana, amphetamines and methamphetamine Exam Narrative Exam Narrative: psychomotor agitation but fairly directable with exam Initial Vital Signs Initial Vital Signs: Vital Signs Temperature 98.2 F 01/23/24 19:24 Pulse Rate 132 H 01/23/24 19:24 Respiratory Rate 17 01/23/24 19:24 Blood Pressure 160/80 H 01/23/24 19:24 Pulse Oximetry 95 01/23/24 19:24 Oxygen Delivery Method Room Air 01/23/24 19:24 Const Other: generally cooperative and redirectable with exam Neuro Other: Agitated but generally directable, asking for her brother, moves all extremities, sits, stands, moves around room without difficulty, no facial droop, pupils appeared equal and round Psych Other: agitation but generally directable, denies thoughts of hurting herself or hurting others Course Orders Ordered: Discontinued Medications Sodium Chloride (Normal Saline 0.9%) 1,000 mls @ 1,000 mls/hr IV BOLUS ONE Stop: 01/23/24 20:51 Lorazepam (Lorazepam 0.5 Mg Tablet) 0.5 mg PO NOW ONE Stop: 01/23/24 19:53 Last Admin: 01/23/24 20:26 Dose: 0.5 mg Documented By: CYNDIE Medical Decision Making Differential Diagnosis Differential Diagnosis: psychomotor agitation, intoxication, underlying mental illness, other Discussed with:: patient brother arrived, spoke directly with him in front of patient MDM Narrative Medical decision making narrative: Initially agitated, asking for her brother who did arrive to the room, discussed disposition together, brother thought patient needed to calm down before he could take her home, PO Ativan dose taken, improved. Nursing reports that brother then left ED with patient, before any further discussion or any discharge paperwork Discharge Plan Departure Patient Disposition: Elopement Clinical Impression: Eloped from emergency department, Substance Abuse Prescriptions: No Action aripiprazole [Abilify] 10 mg tablet 10 mg PO DAILY propranolol 10 mg tablet 5 mg PO ONCE rizatriptan 5 mg tablet See Rx Instructions PO .COMPLEX Qty: 30 0RF Rx Instructions: take 1 tablet at onset of headache; if no relief, may repeat 1 tablet after at least 2 hrs PO. Did not tolerate sumatriptan verapamil 120 mg capsule,ext rel. pellets 24 hr 120 mg PO DAILY Qty: 60 0RF Referrals: Yakov Garcia MD [Primary Care Provider] - SNF Discharge Plan Provider Discharge comment: RN reports patient left ED with brother after PO Ativan dose given, they eloped before any DC instructions given
[2024-01-23] MEDS: LORazepam 0.5 MG TABLET PO (20:26)
--- NOTE | 2024-01-23 20:29 | PC.NURSE ---
Pt administered 0.5 mg of ativan and left in the room w her brother. About 5 mins after administration, both the pt and the brother walked out of the ER. Pts brother spoke to the cloth mercerizer operator and continued to leave the ER without incident.
== END 2024-01-23 20:20 | disposition left against medical advice (07) ==
PROVIDERS: Emergency Provider Emergency Medicine; Family Provider Family Medicine; PCP Family Medicine
DX: F19.10 Other psychoactive substance abuse, uncomplicated (principal); R45.1 Restlessness and agitation; Z53.29 Procedure and treatment not carried out because of patient's decision for other reasons
CPT/HCPCS: 99282; 99283

== ENCOUNTER 2024-07-30 15:48 | Emergency (ER) | payer OTHER, MEDICAID, SELFPAY ==
--- NOTE | 2024-07-30 15:47 | ED.GENADULT ---
HPI - General Adult <Marta Patel MD - Last Filed: 07/31/24 15:47> General Chief complaint: Toxicology Problem Stated complaint: Mental Health Time Seen by Provider: 07/30/24 16:05 History of Present Illness HPI narrative: 23-year-old woman with a history of homelessness, methamphetamine use brought in by police after being contacted by the patient's mother concerned that she was having a mental health crisis. On the scene the patient was literally spinning around in circles, sweating profusely, inarticulate an unable to control herself. She was felt to be a risk to herself and those around her and was brought to the emergency department for further evaluation. There was behaviors continued on arrival along with significant yelling of multiple different profanities, she was able to slightly be redirected, pressured speech significant psychomotor agitation. Related Data Home Medications Medication Instructions Recorded Confirmed aripiprazole 10 mg tablet (Abilify) 10 mg PO DAILY 08/17/21 11/14/21 propranolol 10 mg tablet 5 mg PO ONCE 08/17/21 11/14/21 Previous Rx's Medication Instructions Recorded rizatriptan 5 mg tablet See Rx Instructions PO .COMPLEX 08/28/21 #30 tabs verapamil 120 mg 24 hr 120 mg PO DAILY #60 caps 08/28/21 capsule,extended release Allergies Allergy/AdvReac Type Severity Reaction Status Date / Time haloperidol [From Haldol] AdvReac Verified 07/31/24 14:18 Review of Systems <Marta Patel MD - Last Filed: 07/31/24 15:47> Review of Systems ROS Unobtainable: Unobtainable due to mental status/LOC Patient History <Marta Patel MD - Last Filed: 07/31/24 15:47> Medical History Screening for HPV (human papillomavirus) Cervical cancer screening Impingement syndrome, shoulder, left Hepatitis C Anxiety Acute hepatitis C virus infection without hepatic coma (10/02/16) Vaginal delivery Social History Smoking Status: Current every day smoker Exam <Marta Patel MD - Last Filed: 07/31/24 15:47> Initial Vital Signs Initial Vital Signs: Vital Signs Pulse Rate 96 H 07/30/24 16:33 Respiratory Rate 16 07/30/24 16:33 Blood Pressure 126/62 07/30/24 16:33 Pulse Oximetry 97 07/30/24 16:33 General: Agitated, screaming obscenities, uncooperative HEENT: dry mucous membranes, normal sclera with reactive pupils, Respiratory: Lungs Full and symmetrical air movement Cardiac: tachycardia Abdomen: no obvious pain behaviors with palpation, no distention Skin: pale, multiple skin lesions from picking and presumed methamphetamine use Neurologic: she is not oriented to person time or place, she is freely moving all extremities Extremities: No obvious trauma Psych: acutely psychotic <Erika Rosenberg MD - Last Filed: 07/31/24 17:57> Initial Vital Signs Initial Vital Signs: Vital Signs Pulse Rate 96 H 07/30/24 16:33 Respiratory Rate 16 07/30/24 16:33 Blood Pressure 126/62 07/30/24 16:33 Pulse Oximetry 97 07/30/24 16:33 Course <Marta Patel MD - Last Filed: 07/31/24 15:47> Orders Ordered: ED Orders 07/31/24 09:33 Urine Drug Screen, Rapid Stat 07/31/24 10:11 COVID19 -Nasal RAPID Stat Discontinued Medications Diphenhydramine HCl (Diphenhydramine 50 Mg/Ml Vial) 50 mg IM NOW ONE Stop: 07/31/24 15:10 Diphenhydramine HCl (Diphenhydramine 50 Mg/Ml Vial) 50 mg IM NOW ONE Stop: 07/31/24 14:18 Last Admin: 07/31/24 14:20 Dose: 50 mg Documented By: SPF Haloperidol (Haloperidol 5 Mg/Ml Vial) 10 mg IM NOW ONE Stop: 07/30/24 15:48 Last Admin: 07/30/24 15:52 Dose: 10 mg Documented By: KB Lorazepam (Lorazepam 2 Mg/Ml Inj) 2 mg IM NOW ONE Stop: 07/30/24 15:48 Last Admin: 07/30/24 20:48 Dose: Not Given Documented By: AB Vital Signs Vital signs: Vital Signs - 8 hr 07/31/24 10:26 07/31/24 11:56 07/31/24 14:22 Temperature 97.7 F Pulse Rate 66 79 Respiratory Rate 14 18 20 Blood Pressure 114/61 Pulse Oximetry 99 100 Oxygen Delivery Method Room Air Room Air 07/31/24 16:13 07/31/24 16:31 Temperature Pulse Rate 73 Respiratory Rate 16 14 Blood Pressure 126/74 Pulse Oximetry 99 Oxygen Delivery Method Room Air <Erika Rosenberg MD - Last Filed: 07/31/24 17:57> Orders Ordered: ED Orders 07/31/24 09:33 Urine Drug Screen, Rapid Stat 07/31/24 10:11 COVID19 -Nasal RAPID Stat Discontinued Medications Diphenhydramine HCl (Diphenhydramine 50 Mg/Ml Vial) 50 mg IM NOW ONE Stop: 07/31/24 15:10 Diphenhydramine HCl (Diphenhydramine 50 Mg/Ml Vial) 50 mg IM NOW ONE Stop: 07/31/24 14:18 Last Admin: 07/31/24 14:20 Dose: 50 mg Documented By: ABEL Haloperidol (Haloperidol 5 Mg/Ml Vial) 10 mg IM NOW ONE Stop: 07/30/24 15:48 Last Admin: 07/30/24 15:52 Dose: 10 mg Documented By: LAURA Lorazepam (Lorazepam 2 Mg/Ml Inj) 2 mg IM NOW ONE Stop: 07/30/24 15:48 Last Admin: 07/30/24 20:48 Dose: Not Given Documented By: Vital Signs Vital signs: Vital Signs - 8 hr 07/31/24 10:26 07/31/24 11:56 07/31/24 14:22 Temperature 97.7 F Pulse Rate 66 79 Respiratory Rate 14 18 20 Blood Pressure 114/61 Pulse Oximetry 99 100 Oxygen Delivery Method Room Air Room Air 07/31/24 16:13 07/31/24 16:31 Temperature Pulse Rate 73 Respiratory Rate 16 14 Blood Pressure 126/74 Pulse Oximetry 99 Oxygen Delivery Method Room Air Medical Decision Making <Marta Patel MD - Last Filed: 07/31/24 15:47> Lab Data 07/30/24 18:16 07/30/24 18:16 Labs: Lab Results 07/30/24 07/31/24 07/31/24 Range/Units 18:16 09:33 10:11 WBC 10.8 (4.5-11.0) X10^3/uL RBC 4.20 (4.0-5.2) X10^6/uL Hgb 10.4 L (12.0-16.0) g/dL Hct 32.4 L (36-46) % MCV 77.0 L (80-100) fL MCH 24.6 L (26-34) PG MCHC 32.0 (30-36) % RDW 15.7 H (11.6-14.8) % Plt Count 510 H (150-400) X10^3/uL Neut % (Auto) 57.2 (50-75) % Lymph % (Auto) 31.0 (25-40) % Rogers % (Auto) 9.3 (3-14) % Eos % (Auto) 1.6 L (2-4) % Baso % (Auto) 0.9 (0-2) % Neut # (Auto) 6200 (7129-5219) /uL Lymph # (Auto) 3300 (9649-7203) /uL Rogers # (Auto) 1000 H (0-900) /uL Eos # (Auto) 200 (0-450) /uL Baso # (Auto) 100 (0-100) /uL Sodium 135 L (137-145) mmol/L Potassium 3.5 (3.4-5.1) mmol/L Chloride 102 (98-107) mmol/L Carbon Dioxide 26 (22-32) mmol/L BUN 20 H (7-17) mg/dL Creatinine 0.81 (0.52-1.04) mg/dL Estimated GFR > 60 (>60) mL/min BUN/Creatinine Ratio 24.7 H (6-22) Glucose 86 (70-100) mg/dL Calcium 9.4 (8.4-10.2) mg/dL Total Bilirubin 0.5 (0.2-1.3) mg/dL AST 77 H (14-36) IU/L ALT 29 (<35) IU/L Alkaline Phosphatase 72 (38-126) U/L Total Protein 7.4 (6.3-8.2) g/dL Albumin 4.3 (3.5-5.0) g/dL Globulin 3.1 (1.7-4.1) g/dL Albumin/Globulin Ratio 1.4 (1.0-2.8) TSH 3.53 (0.47-4.68) uIU/mL U Opiates 300ng/mL cut Negative (Negative) Ur Oxycodone Screen Negative (Negative) Urine Methadone Screen Negative (Negative) Ur Barbiturates Screen Negative (Negative) U Tricyclic Antidepress Negative (Negative) Ur Phencyclidine Scrn Negative (Negative) Ur Amphetamines Screen Positive H (Negative) U Methamphetamines Scrn Positive H (Negative) Ur MDMA Scrn (Ecstasy) Negative (Negative) U Benzodiazepines Scrn Negative (Negative) Urine Cocaine Screen Negative (Negative) U Marijuana (THC) Screen Negative (Negative) Urine pH Normal (Normal) Urine Specific [place] Normal (Normal) Ethyl Alcohol < 10 ( - 10) mg/dL Ur Creatinine Normal (Normal) SARS-CoV-2 (PCR) Negative (Negative) Point of Care Testing Test Results Negative Urine Dip Bedside Urine Glucose Negative Bedside Urine Bilirubin - Negative Bedside Urine Ketone +/- 5 Urine Specific [place] 1.030 Bedside Urine Occult Blood - Negative Bedside Urine pH 5.5 Bedside Urine Protein - Negative Bedside Urine Urobilinogen - Negative Bedside Urine Nitrite - Negative Bedside Urine Leukocytes - Negative Esterase Point of care testing: Point of Care Testing Test Results Negative Urine Dip Bedside Urine Glucose Negative Bedside Urine Bilirubin - Negative Bedside Urine Ketone +/- 5 Urine Specific [place] 1.030 Bedside Urine Occult Blood - Negative Bedside Urine pH 5.5 Bedside Urine Protein - Negative Bedside Urine Urobilinogen - Negative Bedside Urine Nitrite - Negative Bedside Urine Leukocytes - Negative Esterase MDM Narrative Medical decision making narrative: 23-year-old woman with a history of methamphetamine use, unclear if she truly has a psychiatric history beyond drug use. Acutely psychotic, screaming obscenities, significant agitation and thrashing about on arrival. Was initially offered an IM shot of 10 mg of Haldol and 2 mg of Ativan and with some persuasion was willing to allow this to be given. Shortly after the sedation she did calm and is now sleeping comfortably. Needs remainder of psychiatric workup and PATIENT RELATIONS MANAGER evaluation. Transferred to the evening physician Dr. Rosenberg - care Of patient is signed to me by daytime physician. Independent review of patient and chart performed by myself. Patient is still under influence of sedation, sleeping comfortably. We will observe overnight and we will reassess in the morning. 0500 - patient now more awake - ambulated to bathroom but did not provide urine sample. Patient questioned on why she was brought to the ER. She says she was brought for her mental health. I asked if patient wanted to harm herself and she started mumbling into her blanket. I clarified that this was a yes or no question to the patient and then she yelled I want to fucking kill myself. Patient to be changed into paper scrubs and will wait for PATIENT RELATIONS MANAGER in am. 11am Lab results of returned. Mild chronic stable anemia with hemoglobin at 10.4. Chemistries are reassuring. AST is slightly elevated at 77 which is decreased from approximately 6 months ago. TSH is within normal limits. Alcohol level is 0 Urine drug screen is positive only for methamphetamines, we will call DCR Urine dip does not suggest bladder infection She is not 1050 discussion with PATIENT RELATIONS MANAGER. She has talked with the patient, with the patient's mother patient is suicidal behaviors have been escalating over the last couple of weeks with a years long process building up to this. She has never been detained. at this point she is not a good jay voluntary admit and clearly showing a pattern of escalating destructive behavior and describes wanting to kill herself. I believe she is a grave danger to herself and does need inpatient psychiatric care. 215pm patient is talking with the DCR, called to bedside for further evaluation. She is having involuntary contraction of her neck muscles and complains that her throat does not feel right. She appears to be having an acute dysthymic reaction, she was given 10 mg of IM Haldol almost exactly 24 hours ago, she has had no other medications or ingestions. She will be given 50 mg of IM Benadryl in re-evaluated. Lungs are clear airway was not compromised. 345 patient has been detained. Bed is available at [facility]. Transport has been arranged <Erika Rosenberg MD - Last Filed: 07/31/24 17:57> Lab Data Labs: Lab Results 07/30/24 07/31/24 07/31/24 Range/Units 18:16 09:33 10:11 WBC 10.8 (4.5-11.0) X10^3/uL RBC 4.20 (4.0-5.2) X10^6/uL Hgb 10.4 L (12.0-16.0) g/dL Hct 32.4 L (36-46) % MCV 77.0 L (80-100) fL MCH 24.6 L (26-34) PG MCHC 32.0 (30-36) % RDW 15.7 H (11.6-14.8) % Plt Count 510 H (150-400) X10^3/uL Neut % (Auto) 57.2 (50-75) % Lymph % (Auto) 31.0 (25-40) % Rogers % (Auto) 9.3 (3-14) % Eos % (Auto) 1.6 L (2-4) % Baso % (Auto) 0.9 (0-2) % Neut # (Auto) 6200 (7270-2120) /uL Lymph # (Auto) 3300 (5479-8213) /uL Rogers # (Auto) 1000 H (0-900) /uL Eos # (Auto) 200 (0-450) /uL Baso # (Auto) 100 (0-100) /uL Sodium 135 L (137-145) mmol/L Potassium 3.5 (3.4-5.1) mmol/L Chloride 102 (98-107) mmol/L Carbon Dioxide 26 (22-32) mmol/L BUN 20 H (7-17) mg/dL Creatinine 0.81 (0.52-1.04) mg/dL Estimated GFR > 60 (>60) mL/min BUN/Creatinine Ratio 24.7 H (6-22) Glucose 86 (70-100) mg/dL Calcium 9.4 (8.4-10.2) mg/dL Total Bilirubin 0.5 (0.2-1.3) mg/dL AST 77 H (14-36) IU/L ALT 29 (<35) IU/L Alkaline Phosphatase 72 (38-126) U/L Total Protein 7.4 (6.3-8.2) g/dL Albumin 4.3 (3.5-5.0) g/dL Globulin 3.1 (1.7-4.1) g/dL Albumin/Globulin Ratio 1.4 (1.0-2.8) TSH 3.53 (0.47-4.68) uIU/mL U Opiates 300ng/mL cut Negative (Negative) Ur Oxycodone Screen Negative (Negative) Urine Methadone Screen Negative (Negative) Ur Barbiturates Screen Negative (Negative) U Tricyclic Antidepress Negative (Negative) Ur Phencyclidine Scrn Negative (Negative) Ur Amphetamines Screen Positive H (Negative) U Methamphetamines Scrn Positive H (Negative) Ur MDMA Scrn (Ecstasy) Negative (Negative) U Benzodiazepines Scrn Negative (Negative) Urine Cocaine Screen Negative (Negative) U Marijuana (THC) Screen Negative (Negative) Urine pH Normal (Normal) Urine Specific [place] Normal (Normal) Ethyl Alcohol < 10 ( - 10) mg/dL Ur Creatinine Normal (Normal) SARS-CoV-2 (PCR) Negative (Negative) Point of Care Testing Test Results Negative Urine Dip Bedside Urine Glucose Negative Bedside Urine Bilirubin - Negative Bedside Urine Ketone +/- 5 Urine Specific [place] 1.030 Bedside Urine Occult Blood - Negative Bedside Urine pH 5.5 Bedside Urine Protein - Negative Bedside Urine Urobilinogen - Negative Bedside Urine Nitrite - Negative Bedside Urine Leukocytes - Negative Esterase Point of care testing: Point of Care Testing Test Results Negative Urine Dip Bedside Urine Glucose Negative Bedside Urine Bilirubin - Negative Bedside Urine Ketone +/- 5 Urine Specific [place] 1.030 Bedside Urine Occult Blood - Negative Bedside Urine pH 5.5 Bedside Urine Protein - Negative Bedside Urine Urobilinogen - Negative Bedside Urine Nitrite - Negative Bedside Urine Leukocytes - Negative Esterase MDM Narrative Medical decision making narrative: 23-year-old woman with a history of methamphetamine use, unclear if she truly has a psychiatric history beyond drug use. Acutely psychotic, screaming obscenities, significant agitation and thrashing about on arrival. Was initially offered an IM shot of 10 mg of Haldol and 2 mg of Ativan and with some persuasion was willing to allow this to be given. Shortly after the sedation she did calm and is now sleeping comfortably. Needs remainder of psychiatric workup and PATIENT RELATIONS MANAGER evaluation. Transferred to the evening physician Dr. Rosenberg - care Of patient is signed to me by daytime physician. Independent review of patient and chart performed by myself. Patient is still under influence of sedation, sleeping comfortably. We will observe overnight and we will reassess in the morning. 0500 - patient now more awake - ambulated to bathroom but did not provide urine sample. Patient questioned on why she was brought to the ER. She says she was brought for her mental health. I asked if patient wanted to harm herself and she started mumbling into her blanket. I clarified that this was a yes or no question to the patient and then she yelled I want to fucking kill myself. Patient to be changed into paper scrubs and will wait for PATIENT RELATIONS MANAGER in am. 0700 -care of patient is signed out to daytime physician. Still pending urinalysis and PATIENT RELATIONS MANAGER consult. 11am Lab results of returned. Mild chronic stable anemia with hemoglobin at 10.4. Chemistries are reassuring. AST is slightly elevated at 77 which is decreased from approximately 6 months ago. TSH is within normal limits. Alcohol level is 0 Urine drug screen is positive only for methamphetamines, we will call DCR Urine dip does not suggest bladder infection She is not 1050 discussion with PATIENT RELATIONS MANAGER. She has talked with the patient, with the patient's mother patient is suicidal behaviors have been escalating over the last couple of weeks with a years long process building up to this. She has never been detained. at this point she is not a good jay voluntary admit and clearly showing a pattern of escalating destructive behavior and describes wanting to kill herself. I believe she is a grave danger to herself and does need inpatient psychiatric care. 215pm patient is talking with the DCR, called to bedside for further evaluation. She is having involuntary contraction of her neck muscles and complains that her throat does not feel right. She appears to be having an acute dysthymic reaction, she was given 10 mg of IM Haldol almost exactly 24 hours ago, she has had no other medications or ingestions. She will be given 50 mg of IM Benadryl in re-evaluated. Lungs are clear airway was not compromised. 345 patient has been detained. Bed is available at [facility]. Transport has been arranged Discharge Plan Departure Patient Disposition: Xfer Psychiatric Hosp Clinical Impression: Suicidal ideation, Methamphetamine abuse Prescriptions: No Action aripiprazole [Abilify] 10 mg tablet 10 mg PO DAILY propranolol 10 mg tablet 5 mg PO ONCE rizatriptan 5 mg tablet See Rx Instructions PO .COMPLEX Qty: 30 0RF Rx Instructions: take 1 tablet at onset of headache; if no relief, may repeat 1 tablet after at least 2 hrs PO. Did not tolerate sumatriptan verapamil 120 mg capsule,ext rel. pellets 24 hr 120 mg PO DAILY Qty: 60 0RF Referrals: Yakov Garcia MD [Primary Care Provider] -
[2024-07-30] MEDS: HALOPERIDOL 5 MG/ML VIAL 10 MG IM (15:52)
[2024-07-30 15:55] VITALS: BMI 22.4
--- NOTE | 2024-07-30 16:13 | PC.NURSE ---
Pt arrived via [employer]. [employer] reports that pt arrived to parents home to try and get her clothes and belongings. Parents have custody of pt's children and pt is not allowed at the home. [employer] was called and pt transported to ED. Upon arrival, pt yelling at staff, thrashing, and very anxious. Pt appears to be experiencing a wide range of unpredictable emotions.
[2024-07-30 16:33] VITALS: BP 126/62; PULSE 96; RESP 16; O2SAT 97
[2024-07-30 17:06] VITALS: PULSE 89; RESP 20; TEMP 37; O2SAT 99
--- NOTE | 2024-07-30 17:36 | PC.NURSE ---
pt laying down. given warm blankets. chest rise and fall observed.
--- NOTE | 2024-07-30 18:09 | EKG_ITS ---
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
[2024-07-30 18:32] LABS: Add Manual Diff / Slide Review NO; Basophils Absolute Auto 100 /uL (0-100); Basophils Percent Auto 0.9 % (0-2); Eosinophils Absolute Auto 200 /uL (0-450); Eosinophils Percent Auto 1.6 % (2-4); Hematocrit 32.4 % (36-46); Hemoglobin 10.4 g/dL (12.0-16.0); Lymphocytes Absolute Auto 3300 /uL (1100-4500); Mean Corpuscular Hemoglobin 24.6 PG (26-34); Monocytes Absolute Auto 1000 /uL (0-900); Monocytes Percent Auto 9.3 % (3-14); Neutrophils Absolute Auto 6200 /uL (1500-7000); Neutrophils Percent Auto 57.2 % (50-75); Platelet Count 510 X10^3/uL (150-400); Red Cell Distribution Width 15.7 % (11.6-14.8); White Blood Cell Count 10.8 X10^3/uL (4.5-11.0)
[2024-07-30 18:48] LABS: Alanine Aminotransferase 29 IU/L (<35); Albumin 4.3 g/dL (3.5-5.0); Albumin Globulin Ratio 1.4 (1.0-2.8); Alkaline Phosphatase 72 U/L (38-126); Aspartate Aminotransferase 77 IU/L (14-36); BUN Creatinine Ratio 24.7 (6-22); Bilirubin Total 0.5 mg/dL (0.2-1.3); Blood Urea Nitrogen 20 mg/dL (7-17); Calcium 9.4 mg/dL (8.4-10.2); Carbon Dioxide 26 mmol/L (22-32); Chloride 102 mmol/L (98-107); Estimated Glomerular Filt Rate > 60 mL/min (>60); Ethanol (ETOH) < 10 mg/dL; Globulin 3.1 g/dL (1.7-4.1); Glucose 86 mg/dL (70-100); HEMOLYSIS < 15 (0-50); Potassium 3.5 mmol/L (3.4-5.1); Sodium 135 mmol/L (137-145); Total Protein 7.4 g/dL (6.3-8.2)
[2024-07-30 19:18] LABS: TSH w/ Reflex to FT4 3.53 uIU/mL (0.47-4.68)
--- NOTE | 2024-07-30 19:22 | CM.SWNOTE ---
ED ENGINEER TECHNICAL STAFF Note: Patient is a 23yo female, currently unhoused in [facility]. Reviewed EMR and team rounds for pt?s medical status. Per [facility], pt has an extensive hx of OUD related incidents. ENGINEER TECHNICAL STAFF consulted for possibly detox/OUD referrals. Pt sound asleep during this ENGINEER TECHNICAL STAFF shift and could not obtain full MH assessment. ED ENGINEER TECHNICAL STAFF discussed with ED staff about detox and OUD options should pt request them when she awakes. Plan: ED Staff to coordinate discharge upon medical clearance. ENGINEER TECHNICAL STAFF can assist post-discharge if necessary. MIR Pina
--- NOTE | 2024-07-30 20:51 | PC.NURSE ---
Pt resting quietly with eyes closed, resps even and not labored. No distress noted at this time. Pt remains connected to pulse ox monitor with alarm on and audible. Room close to nurses station with frequent RN rounding.
[2024-07-30 20:56] VITALS: PULSE 70; RESP 16; O2SAT 98
--- NOTE | 2024-07-30 21:39 | PC.NURSE ---
Pt wakes easily and speaks on phone with . Answers some questions for staff then becomes agitated again stating I just wanna go back to sleep!. Pt remains on pulse ox with alarm on and audible.
--- NOTE | 2024-07-30 22:34 | PC.NURSE ---
No change in patient condition or status. Pt resting quietly with eyes closed, resps even and not labored. No distress noted at this time. Pt remains connected to pulse ox monitor with alarms on and audible. Room close to RN desk with frequent rounding by staff.
[2024-07-30 22:36] VITALS: PULSE 71; RESP 14; O2SAT 98
[2024-07-30 23:09] VITALS: PULSE 78; RESP 14; O2SAT 98
--- NOTE | 2024-07-30 23:10 | PC.NURSE ---
No change in patient condition or status. Pt resting quietly with eyes closed, resps even and not labored. No distress noted at this time. Pt remains connected to pulse ox monitor with alarms on and audible. Room close to nurses desk with frequent rounding by staff.
[2024-07-31] VITALS (11 sets, daily range): BP systolic 114–126; BP diastolic 61–74; PULSE 62–79; RESP 14–20; TEMP 36.5; O2SAT 97–100
--- NOTE | 2024-07-31 00:03 | PC.NURSE ---
No change in patient condition or status. Pt resting quietly with eyes closed. resps even and not labored. No distress noted at this time. Pt remains connected to pulse ox monitor with alarm on and audible. Room yoly nirses desk with frequent staff rounding.
--- NOTE | 2024-07-31 01:13 | PC.NURSE ---
No change in patient condition or status. Pt resting quietly with eyes closed, resps even and not labored. No distress noted at this time. Pt remains connected to pulse ox monitor with alarm on and audible. Room close to nurses desk with frequent staff rounding.
--- NOTE | 2024-07-31 03:00 | PC.NURSE ---
No change in patient condition or status. Pt resting quietly with eyes closed, resps even and not labored. No distress noted at this time. Pt remains connected to pulse ox monitor with alarm on and audible. Room close to RN desk with frequent staff rounding.
--- NOTE | 2024-07-31 04:00 | PC.NURSE ---
No change in patient condition or status. Pt resting quietly with eyes closed, resps even and not labored. No distress noted at this time. Pt remains connected to pulse ox monitor with alarm on and audible. Room near nurses desk. Frequent staff rounding.
--- NOTE | 2024-07-31 05:01 | PC.NURSE ---
Pt up to restroom. Refusing to speak with RN. Dr. Rosenberg at bedside. Pt shakes her head yes when asked if she wants to hurt herself. Pt changed into disposable scrubs at this time, belongings removed from exam room and placed in locked cabinet with patient label. December, nurse discharge planner made aware.
--- NOTE | 2024-07-31 08:54 | PC.NURSE ---
PT laying in bed on her right side covered with blanket. Respirations observed equal and unlabored.
[2024-07-31 09:45] LABS: Ur Creatinine Normal (Normal); Ur Specific Gravity Normal (Normal); Urine pH Normal (Normal)
[2024-07-31 09:46] LABS: UR Morphine/Opiate cutoff 300 Negative (Negative); Urine Amphetamines Positive (Negative); Urine Barbiturates Negative (Negative); Urine Benzodiazepines Negative (Negative); Urine Cocaine Negative (Negative); Urine MDMA Negative (Negative); Urine Methadone Negative (Negative); Urine Methamphetamines Positive (Negative); Urine Oxycodone Negative (Negative); Urine Phencyclidine Negative (Negative); Urine Tetrahydrocannabinol Negative (Negative); Urine Tricyclic Antidepressant Negative (Negative)
--- NOTE | 2024-07-31 10:59 | CM.SWNOTE ---
ED SUPERVISOR WALL MIRROR DEPARTMENT Assessment Note Patient presents to ED via EMS and [facility] last evening due to concern for MH crisis and substance use. It is reported that patient arrived at her parent's home. Patient's two children are in the custody of patient's parents and patient is not allowed at this time to have unsupervised visits. It is reported that patient presented with nonsensical speech and concern for her ability to care for self. Patient has hx of similar ED presentations within the last six months. Patient is 23 y/o female who is currently homeless in [facility]. Patient has hx of PTSD, Bipolar, polysubstance use and ADHD. Patient has hx of SI and suicide attempt. Patient is positive for Methamphetamine and Amphetamines upon this ED presentation. SUPERVISOR WALL MIRROR DEPARTMENT enters room to meet with patient. Patient presents as A/Ox4. Patient states she is tired and presented to ED due to mental health stuff. Patient presents with eyes closed, limited responses to questions, slow to respond. After 10 minutes of speaking patient asks SUPERVISOR WALL MIRROR DEPARTMENT to leave. Patient denies current MH or RENETTA provider, patient endorses hx of RENETTA outpatient tx at [facility] and hx of MH counselor. Patient states she has been to inpatient rehab but does not state where. Patient endorses SI with thoughts of plans and patient does not endorse plans. Patient denies intent of acting on plans. Patient endorses hx of suicide attempt last year that didn't work, patient states I shot myself up with fentanyl. Patient continues to withhold current information about her current SI. When asked about patient's substance use, patient states that she uses all of them, all the time. Patient has been resting in ED since last evening, made a statement to SUPERVISOR [employer]ALL M[employer]OR DEPARTMENT that she wanted to seek help but did not engage in further information with SUPERVISOR [employer]ALL MIR[employer] DEPARTMENT during assessment. SUPERVISOR WALL MIRROR DEPARTMENT contacts patient's mother via phone, it is reported that she has custody of patient's two children ages almost 7 y/o and 9 y/o. It is reported that patient has not had contact or visited her children in months. Mother reports patient's hx of RENETTA disorder since she was 11 years old. Mother endorses that in the last 6 weeks-8 weeks patient was at [place] for a week, [facility] and [facility] multiple times. It is reported that over the last couple years patient has been to several inpatient rehab facilities and patient has been to [facility] more than once. Patient's mother states that once patient is coherent and sober she leaves RENETTA and MH facilities denying concern for any issues. It is reported that patient was court ordered services as a juvenile and was at a residential treatment facility when she was a teenager. Mother states that she is not always aware of where patient is or if she is okay and has always been willing to take patient to treatment when patient is agreeable to do so. Mother expresses concern for patient's compliance as patient has not taken MH medications as prescribed and is not doing so now. It is reported that patient has been offered MH and RENETTA resources through [facility] while her children are in the care of patient's mother and patient's mother is not aware of patient's progress. SUPERVISOR WALL MIRROR DEPARTMENT reviews patient with ED provider. It is the opinion of this SUPERVISOR WALL MIRROR DEPARTMENT that patient would benefit from DCR assessment to determine M[facility]INE treatment to address patient's RENETTA and MH, there is concern for patient's grave disability and patient's harm towards herself. Plan: SUPERVISOR WALL MIRROR DEPARTMENT to dispatch DCR to initiate evaluation to determine M[facility]INE placement. Rachell Comer, RN BEHAVIORAL HEALTH
[2024-07-31 11:02] LABS: COVID19 -Nasal RAPID Negative (Negative)
--- NOTE | 2024-07-31 14:17 | PC.NURSE ---
Deanna CABRALYoan was with the patient,she began to clench her teeth and appear more rigid. I went in to check on her and informed Dr Patel. Pt following commands and able to answer questions but with her mouth clenched. Dr Patel ordered 50mg Benadryl IM. Pt allowed me to principal accounts clerk her IM injection.
[2024-07-31] MEDS: diphenhydrAMINE 50 MG/ML VIAL IM (14:20)
--- NOTE | 2024-07-31 16:14 | PC.NURSE ---
PT attached to pulse oximetry, resting in bed with eyes closed. Chest rise and fall observed with no distress noted.
--- NOTE | 2024-07-31 17:01 | CM.SWNOTE ---
ED LEGAL TRANSCRIBER Note Patient is assessed by ERNIE Huerta. Deanna determines to detain patient due to concern for grave disability and harm to self. LEGAL TRANSCRIBER calls [facility] and faxes clinicals. Deanna calls [facility], LEGAL TRANSCRIBER faxes clinicals. [facility] calls back first and endorses they can accept patient this evening. [facility] is informed that patient was accepted elsewhere. LEGAL TRANSCRIBER calls patient's mother and informs her of where patient is transferring to for MARTINE placement. Plan: patient transferred this evening via EMS to [facility] for MARTINE placement. Rachell Comer, BRIM POUNCER
== END 2024-07-31 16:32 ==
PROVIDERS: Emergency Provider Emergency Medicine; Family Provider Family Medicine; PCP Family Medicine
DX: R45.851 Suicidal ideations (principal); F15.10 Other stimulant abuse, uncomplicated; M62.48 Contracture of muscle, other site; Z59.00 Homelessness unspecified
CPT/HCPCS: 80053; 80305; 80320; 81003; 81025; 84443; 85025; 87635; 93005; 96372; 99284; J1200; J1630

== ENCOUNTER 2025-07-08 00:49 | Emergency (ER) | payer OTHER, MEDICAID, SELFPAY ==
[2025-07-08 01:03] VITALS: BP 154/100; PULSE 86; RESP 17; TEMP 36.1; O2SAT 98; BMI 22.8
[2025-07-08 01:57] LABS: Add Manual Diff / Slide Review NO; Hematocrit 36.5 % (36-46); Hemoglobin 11.7 g/dL (12.0-16.0); Lymphocytes Absolute Auto 3200 /uL (1100-4500); Mean Corpuscular HGB Conc 32.2 % (30-36); Mean Corpuscular Hemoglobin 25.0 PG (26-34); Mean Corpuscular Volume 77.6 fL (80-100); Platelet Count 392 X10^3/uL (150-400)
[2025-07-08 02:08] LABS: Alanine Aminotransferase 16 IU/L (<35); Albumin 4.9 g/dL (3.5-5.0); Albumin Globulin Ratio 1.4 (1.0-2.8); Alkaline Phosphatase 72 U/L (38-126); Blood Urea Nitrogen 19 mg/dL (7-17); Calcium 9.6 mg/dL (8.4-10.2); Carbon Dioxide 26 mmol/L (22-32); Chloride 103 mmol/L (98-107); Estimated Glomerular Filt Rate > 60 mL/min (>60); Globulin 3.6 g/dL (1.7-4.1); Glucose 107 mg/dL (70-99); HEMOLYSIS < 15 (0-50); Potassium 3.5 mmol/L (3.4-5.1); Sodium 139 mmol/L (137-145); Total Protein 8.5 g/dL (6.3-8.2)
--- NOTE | 2025-07-08 02:16 | ED.RECABL ---
HPI - Recheck/Abnormal Lab/Rx General Chief Complaint: Recheck/Abnormal Lab/Rx Stated Complaint: Needs Mental help, Testing Time Seen by Provider: 07/08/25 02:10 Source: patient Mode of arrival: Ambulatory History of Present Illness HPI narrative: 24-year-old female with a history hepatitis-C , depression, methamphetamine use who was concerned that her liver enzymes might be elevated and wants a lab checked to make sure liver enzymes are normal. Otherwise asymptomatic Related Data Home Medications ?Medication ?Instructions ?Recorded ?Confirmed aripiprazole 10 mg tablet (Abilify) 10 mg PO DAILY 08/17/21 11/14/21 propranolol 10 mg tablet 5 mg PO ONCE 08/17/21 11/14/21 Previous Rx's ?Medication ?Instructions ?Recorded rizatriptan 5 mg tablet See Rx Instructions PO .COMPLEX 08/28/21 #30 tabs verapamil 120 mg 24 hr 120 mg PO DAILY #60 caps 08/28/21 capsule,extended release Allergies Allergy/AdvReac Type Severity Reaction Status Date / Time haloperidol (From Haldol) AdvReac Verified 07/08/25 01:03 Review of Systems Review of Systems ROS Unobtainable: All systems reviewed & are unremarkable except as noted in HPI and below Patient History Medical History Screening for HPV (human papillomavirus) Cervical cancer screening Impingement syndrome, shoulder, left Hepatitis C Anxiety Acute hepatitis C virus infection without hepatic coma (10/02/16) Vaginal delivery Social History Smoking Status: Current every day smoker Smoking Status: Current every day smoker tobacco type: cigarettes and vaping alcohol intake frequency: holidays/special occasions only Exam Narrative Exam Narrative: General: Patient appears to be in no acute distress, acting appropriately Head: normocephalic, atraumatic, HEENT: Pupils equal round reactive, eyes tracking well, neck supple, no JVD Heart: regular rate and rhythm, no murmurs, rubs, or gallops heard Lungs: clear to auscultation, no adventitious sounds Abdomen: soft , nontender, nondistended, positive bowel sounds Neurological: no focal neurological signs, moving all extremities well, alert and oriented x3, Psych: good judgment ,good insight, mood is normal. Initial Vital Signs Initial Vital Signs: Vital Signs Temperature 96.9 F L 07/08/25 01:03 Pulse Rate 86 07/08/25 01:03 Respiratory Rate 17 07/08/25 01:03 Blood Pressure 154/100 H 07/08/25 01:03 Pulse Oximetry 98 07/08/25 01:03 Oxygen Delivery Method Room Air 07/08/25 01:03 Course Orders Ordered: ED Orders 07/08/25 01:40 CBC Auto Diff [Complete Blood Count AUTO DIFF] Stat Comprehensive Metabolic Panel Stat Vital Signs Vital signs: Vital Signs - 8 hr 07/08/25 01:03 07/08/25 02:35 Temperature 96.9 F L 97.9 F Pulse Rate 86 82 Respiratory Rate 17 12 Blood Pressure 154/100 H 126/90 Pulse Oximetry 98 100 Oxygen Delivery Method Room Air Room Air MDM - Recheck/Abnormal Lab/Rx Lab Data 07/08/25 01:40 07/08/25 01:40 Labs: Lab Results 07/08/25 Range/Units 01:40 WBC 14.4 H (4.5-11.0) X10^3/uL RBC 4.70 (4.0-5.2) X10^6/uL Hgb 11.7 L (12.0-16.0) g/dL Hct 36.5 (36-46) % MCV 77.6 L (80-100) fL MCH 25.0 L (26-34) PG MCHC 32.2 (30-36) % RDW 16.3 H (11.6-14.8) % Plt Count 392 (150-400) X10^3/uL Neut % (Auto) 71.8 (50-75) % Lymph % (Auto) 22.0 L (25-40) % [place] % (Auto) 4.8 (3-14) % Eos % (Auto) 1.0 L (2-4) % Baso % (Auto) 0.4 (0-2) % Neut # (Auto) 07587 H (8252-0292) /uL Lymph # (Auto) 3200 (8261-8270) /uL [place] # (Auto) 700 (0-900) /uL Eos # (Auto) 100 (0-450) /uL Baso # (Auto) 100 (0-100) /uL Sodium 139 (137-145) mmol/L Potassium 3.5 (3.4-5.1) mmol/L Chloride 103 (98-107) mmol/L Carbon Dioxide 26 (22-32) mmol/L BUN 19 H (7-17) mg/dL Creatinine 0.81 (0.52-1.04) mg/dL Estimated GFR > 60 (>60) mL/min BUN/Creatinine Ratio 23.5 H (6-22) Glucose 107 H (70-99) mg/dL Calcium 9.6 (8.4-10.2) mg/dL Total Bilirubin 0.4 (0.2-1.3) mg/dL AST 27 (14-36) IU/L ALT 16 (<35) IU/L Alkaline Phosphatase 72 (38-126) U/L Total Protein 8.5 H (6.3-8.2) g/dL Albumin 4.9 (3.5-5.0) g/dL Globulin 3.6 (1.7-4.1) g/dL Albumin/Globulin Ratio 1.4 (1.0-2.8) MDM Narrative Medical decision making narrative: 24-year-old female with a history of homelessness, methamphetamine use, came in with concerns that her liver enzymes were abnormal and was requesting a lab check. Labs were performed for her which showed normal liver enzymes. Patient reassured. Discharge Plan Departure Patient Disposition: Home Clinical Impression: Feared condition not demonstrated Instructions: Liver Function Tests Activity Restrictions/Additional Instructions: Reassured today that liver enzymes are normal. Patient is not anemic at this time. Patient reassured. Can follow up with PCP. Prescriptions: No Action aripiprazole [Abilify] 10 mg tablet 10 mg PO DAILY propranolol 10 mg tablet 5 mg PO ONCE rizatriptan 5 mg tablet See Rx Instructions PO .COMPLEX Qty: 30 0RF Rx Instructions: take 1 tablet at onset of headache; if no relief, may repeat 1 tablet after at least 2 hrs PO. Did not tolerate sumatriptan verapamil 120 mg capsule,ext rel. pellets 24 hr 120 mg PO DAILY Qty: 60 0RF Referrals: Miscellaneous,Doctor, [Primary Care Provider, Medical] Stand Alone Forms: Patient Portal/API
[2025-07-08 02:35] VITALS: BP 126/90; PULSE 82; RESP 12; TEMP 36.6; O2SAT 100
== END 2025-07-08 02:39 | disposition home or self-care (01) ==
PROVIDERS: Emergency Provider Family Medicine; Family Provider Family Medicine
DX: R79.89 Other specified abnormal findings of blood chemistry (principal); F15.10 Other stimulant abuse, uncomplicated
CPT/HCPCS: 36415; 80053; 85025; 99281; 99283